=== PATIENT | male | born 1995 | race Caucasian/White ===

== ENCOUNTER 2024-08-31 03:37 | Emergency (ER) | payer BC ==
[2024-08-31 04:22] LABS: BASOPHILS ABSOLUTE AUTO 0.04 K/uL (0.00-0.10); BASOPHILS PERCENT AUTO 0.3 % (0.1-1.3); EOSINOPHILS PERCENT AUTO 0.1 % (0.0-5.4); HEMATOCRIT 47.8 % (38.4-49.7); HEMOGLOBIN 16.6 g/dL (12.9-16.9); IMMATURE GRAN ABSOLUTE AUTO 0.07 K/uL (0.00-0.23); IMMATURE GRAN PERCENT AUTO 0.6 % (0.0-0.7); LYMPHOCYTES ABSOLUTE AUTO 1.13 K/uL (0.8-3.3); LYMPHOCYTES PERCENT AUTO 9.5 % (11.4-47.7); MEAN CORPUSCULAR HEMOGLOBIN 29.6 pg (31.6-35.5); MEAN CORPUSCULAR HGB CONC 34.7 g/dL (31.6-35.5); MEAN CORPUSCULAR VOLUME 85.2 fL (81.4-99.0); MONOCYTES ABSOLUTE AUTO 0.39 K/uL (0.20-0.90); MONOCYTES PERCENT AUTO 3.3 % (3.3-12.6); NEUTROPHILS ABSOLUTE AUTO 10.24 K/uL (1.0-7.6); NEUTROPHILS PERCENT AUTO 86.2 % (40.0-78.1); PLATELET COUNT,PLT 192 K/uL (130-375); RED BLOOD CELL COUNT 5.61 M/uL (4.14-5.76); WHITE BLOOD CELL COUNT,WBC 11.9 K/uL (3.2-11.0)
[2024-08-31 04:23] LABS: EOSINOPHILS ABSOLUTE AUTO 0.01 K/uL (0.00-0.40)
[2024-08-31] MEDS: fentaNYL 100 MCG/2 ML SDV IVPUSH ONE ×2 (04:24→05:48)
[2024-08-31] MEDS: Ondansetron 4 MG/2 ML SDV IVPUSH ONE (04:24)
[2024-08-31] MEDS: Sodium Chloride 0.9% 10 ML Syringe FLUSH PRN ×3 (04:24→06:33)
[2024-08-31 04:43] LABS: A/G RATIO 1.1 (1.2-2.2); ALANINE AMINOTRANSFERASE,ALT 54 U/L (12-78); ALBUMIN 4.5 g/dL (3.4-5.0); ALKALINE PHOSPHATASE 105 U/L (46-116); ANION GAP 18.9 mmol/L (5.0-14.0); ASPARTATE AMNIOTRANSFERASE,AST 22 U/L (15-37); BLOOD UREA NITROGEN,BUN 13 mg/dL (7-18); CALCIUM 10.5 mg/dL (8.5-10.1); CARBON DIOXIDE,CO2 25 mmol/L (21-32); CHLORIDE,CL 98 mmol/L (100-108); CREATININE 1.1 mg/dL (0.8-1.3); EST CRCL DRUG DOSING (CG) 107.78 mL/min; ESTIMATED GFR 93 mL/min (>60); GLUCOSE RANDOM 155 mg/dL (74-106); POTASSIUM,K 3.9 mmol/L (3.6-5.2); PROTEIN TOTAL,TP 8.5 g/dL (6.4-8.2); SODIUM,NA 138 mmol/L (140-148)
[2024-08-31] MEDS: Iopamidol 612 MG/ML 100 ML Bottle IV SCH ×2 (04:58→06:33)
[2024-08-31] MEDS: Sodium Chloride 0.9% 100 ML IV SCH ×2 (04:58→06:33)
[2024-08-31] MEDS: Lactated Ringers 1,000 ML IV ONE (05:05)
[2024-08-31 05:45] LABS: APPEARANCE,URINE CLEAR (CLEAR); BILIRUBIN,URINE NEGATIVE (NEGATIVE); COLOR,URINE YELLOW (YELLOW); GLUCOSE,URINE NEGATIVE (NEGATIVE); KETONES,URINE NEGATIVE (NEGATIVE); LEUKOCYTE ESTERASE,URINE NEGATIVE (NEGATIVE); NITRITE,URINE NEGATIVE (NEGATIVE); OCCULT BLOOD,URINE NEGATIVE (NEGATIVE); PROTEIN,URINE NEGATIVE (NEGATIVE); UROBILINOGEN,URINE 0.2 EU/dL (0.2-1.0)
[2024-08-31 05:57] LABS: AMORPHOUS SEDIMENT,URINE MANY; BACTERIA,URINE FEW; EPITHELIAL CELLS,URINE RARE; MUCUS,URINE NOT SEEN; RBC,URINE 0-5 (0-5); WBC,URINE 0-5 (0-5)
== END 2024-08-31 08:34 | disposition home or self-care (01) ==
LOC: JP.ED 03:37
DX: K52.9 Noninfective gastroenteritis and colitis, unspecified (principal); Z86.16 Personal history of COVID-19
CPT/HCPCS: 36415; 74160; 74177; 80053; 81001; 83605; 83690; 84484; 85025; 93005; 93010; 96361; 96374; 96375; 96376; 99284; 99284-25; J2405; J3010; J7120; Q9967